=== PATIENT | female | born 1980 | race Caucasian/White ===

== ENCOUNTER 2018-07-04 19:28 | Emergency (ER) | payer BC ==
[~2018-07-04] VITALS: Ht 170.2 cm; Wt 127.3 kg
[2018-07-04] MEDS ORDERED: BENZONATATE 100 MG CAP PO ONE (20:45)
[2018-07-04] MEDS ORDERED: ACETAMINOPHEN 325 MG TAB PO ONE (20:45)
[2018-07-04 21:15] LABS: INFLUENZA A AMPLIFICATION NEGATIVE (NEGATIVE); INFLUENZA B AMPLIFICATION NEGATIVE (NEGATIVE)
[2018-07-04 21:26] VITALS: BP 123/64
[2018-07-04] MEDS ORDERED: TESS100C PO (21:39)
[2018-07-04] MEDS ORDERED: CHERSYP3 PO (21:39)
[2018-07-04] MEDS ORDERED: DOXY100C37 PO (21:39)
[2018-07-04] MEDS ORDERED: PROAAER10 INH (21:42)
[2018-07-04] MEDS ORDERED: ALBUTEROL 90 MCG/ACT 8GM HFA INHALER INH ONE (21:45)
[2018-07-04] MEDS ORDERED: DOXYCYCLINE HYCLATE 100 MG TAB PO ONE (22:00)
--- NOTE | 2018-07-05 08:57 | REP ---
Chest x-ray: Two views. History: Cough and fever . Comparison study: No comparison . Findings: The lungs are well inflated and free of infiltrate. The pleural angles are sharp. The heart size is normal. Pulmonary vasculature is not increased. No significant bony abnormality is seen. Impression: Negative chest x-ray. Electronically Signed by Panchito Flores MD 07/05/2018 08:48 A
== END 2018-07-04 21:56 | disposition home or self-care (01) ==
LOC: M ED 19:28
DX: J18.9 Pneumonia, unspecified organism (principal); F17.210 Nicotine dependence, cigarettes, uncomplicated

== ENCOUNTER → 2020-12-01 | Outpatient (REF) | payer OTHER, BC ==
[~2020-12-01] MED LIST: CHERSYP3 PO; DOXY100C37 PO; PROAAER10 INH; TESS100C PO
[2020-12-01 17:31] LABS: BACTERIA, URINE AUTO NEGATIVE (NEGATIVE); RBC, URINE AUTO 1 /HPF (0-3); SQUAMOUS EPITHELIAL CELL UR AU 0 /HPF (0-6); WBC, URINE AUTO 1 /HPF (0-3)
== END ==
LOC: M SMT 16:56
PROVIDERS: ATTEND Specialist
DX: N39.46 Mixed incontinence (principal)